=== PATIENT | female | born 1970 | race Hispanic/Latino ===

== ENCOUNTER 2018-07-27 05:47 | Day surgery (SDC) | payer OTHER ==
[~2018-07-27] VITALS: Ht 167.6 cm; Wt 77.1 kg
[2018-07-27 06:25] LABS: BARBITURATES NEGATIVE (NEGATIVE); COCAINE NEGATIVE (NEGATIVE); METHADONE NEGATIVE (NEGATIVE); OXCYCODONE NEGATIVE (NEGATIVE); TETRAHYDROCANNABIONOL POSITIVE (NEGATIVE); TRICYLIC ANTIDEPRESSANTS NEGATIVE (NEGATIVE)
[2018-07-27] MEDS ORDERED: PERCOCET 10/31 COMBO PO (09:46)
[2018-07-27] MEDS ORDERED: MOTRIN800 MG PO (09:46)
[2018-07-27 10:28] VITALS: BP 152/91
== END 2018-07-27 10:20 | disposition home or self-care (01) | DRG 489 ==
LOC: ORM 05:47
PROVIDERS: ATTEND Orthopaedic Surgery
PROC: 0SBD4ZZ Excision of Left Knee Joint, Percutaneous Endoscopic Approach (ICD-10-PCS; principal; 2018-07-27)
DX: S83.232A Complex tear of medial meniscus, current injury, left knee, initial encounter (principal); S83.282A Other tear of lateral meniscus, current injury, left knee, initial encounter; M65.862 Other synovitis and tenosynovitis, left lower leg; M94.262 Chondromalacia, left knee; F17.210 Nicotine dependence, cigarettes, uncomplicated; V43.62XA Car passenger injured in collision with other type car in traffic accident, initial encounter